=== PATIENT | male | born 1970 | race Caucasian/White ===

== ENCOUNTER 2019-08-07 00:30 | Day surgery (SDC) | payer OTHER, SELFPAY ==
[2019-07-31 13:13] VITALS: BMI 34.9
--- NOTE | 2019-08-06 14:01 | HP_ITS ---
DATE OF SERVICE: 08/07/2019 HISTORY: A 48-year-old with lesion on the tip of his nose and front of the ear. PHYSICAL EXAMINATION: CHEST: Clear. HEART: Without murmurs. ABDOMEN: Soft. EXTREMITIES: Negative. He had 2 heart attacks in the past. He is on blood thinners. He has a stent in his leg. A basal cell on tip of the nose, pigmented lesion in front of his ear. REVIEW OF SYSTEMS: he is on blood thinners, he has a stent and he has had an MD. D I MT: [facility]
[2019-08-07] VITALS (10 sets, daily range): BP systolic 121–159; BP diastolic 76–99; PULSE 62–85; RESP 14–20; TEMP 36.3–36.6; O2SAT 92–97
--- NOTE | 2019-08-07 06:11 | WPDHPUPDATE1 ---
History and Physical Update Update Date/Time: 08/07/19 06:11 History and Physical has been reviewed, including an updated exam of the patient. There are NO changes in the patient's condition. Risks, benefits, and alternatives have been discussed and questions answered. Patient agrees to proceed with procedure.
--- NOTE | 2019-08-07 07:33 | WPDHPUPDATE1 ---
History and Physical Update Update Date/Time: 08/07/19 07:33 excision lesion nose and right cheek History and Physical has been reviewed, including an updated exam of the patient. There are NO changes in the patient's condition. Risks, benefits, and alternatives have been discussed and questions answered. Patient agrees to proceed with procedure.
[2019-08-07] MEDS: LACTATED RINGERS 1,000 ML 30 ML IV CONT (08:45)
--- NOTE | 2019-08-07 10:11 | WPDANESEPPF ---
Anes - Initial Pre Proc Eval Procedure: Operation Date: 08/07/19 10:00 Proposed Procedures p Excision Lesion Tip Of Nose, Excision Lesion Right Cheek - Aditya Agustin MD Date/Time: 08/07/19 10:11 Surgeon: Aditya Agustin MD Pre Op Diagnosis: Lesions Tip Of Nose & Right Cheek Patient Data Age: 48 Gender: M Height: 5 ft 8 in Weight: 105.6 kg Last Vital Signs Temp 36.6 C 08/07/19 08:45 Pulse 85 08/07/19 08:45 Resp 18 08/07/19 08:45 BP 159/96 H 08/07/19 08:45 Pulse Ox 97 08/07/19 08:45 Allergies Allergy/AdvReac Type Severity Reaction Status Date / Time Penicillins Allergy SKIN Verified 08/07/19 09:09 PEELING Home Medications Medication Instructions Recorded Confirmed Type carvedilol 1.5 mg PO BID 07/31/19 08/07/19 History icosapent ethyl [Vascepa] 1 g PO BID 07/31/19 07/31/19 History lisinopril 5 mg PO DAILY 07/31/19 07/31/19 History magnesium 1 tablet PO DAILY 07/31/19 07/31/19 History potassium citrate 1 tablet PO DAILY 07/31/19 07/31/19 History ticagrelor [Brilinta] 90 mg PO BID 07/31/19 08/07/19 History Patient hx anesthesia problems: none Family hx anesthesia problems: none PMFSH Past Medical History Medical History (Updated 08/07/19 @ 10:12 by Parker aGy MD) CAD (coronary artery disease) DVT (deep venous thrombosis) History of myocardial infarction Hyperlipidemia Hypertension Surgical History Surgical History Stented coronary artery Social History Social History (Updated 08/07/19 @ 10:13 by Parker Gay MD) Smoking status: Current every day smoker Alcohol intake: current Alcohol use details: regular use Anes - Eval Final PreProcedure Day of Procedure 08/07/19 10:11 Patient weight: obese Heart: regular rate and rhythm Lungs: decreased breath sounds Airway: Mallampati scale class II Neurological: alert and oriented Last oral intake: >/= 8 hours ASA classification: III Emergent: no Anesthetic plan: proceed Anesthesia type and monitoring: general LMA and standard monitoring Informed Consent: The patient's anesthetic plan and its attendant risks and benefits were discussed with the patient/family/POA. Questions were solicited and answers provided to the satisfaction of the patient/family/POA.
[2019-08-07] MEDS: LIDO 1%/EPINEPHRINE 1:100,000 20 ML VIAL INFILTRATE (10:56)
--- NOTE | 2019-08-07 11:14 | PM.PROC ---
Procedure Note - Detailed Date of procedure: 08/07/19 Pre-op diagnosis: Lesions Tip Of Nose & Right Cheek Procedure performed: Patient was prepped in general anesthesia. The area of the right front of the year and tip of the nose was injected with xylocaine with adrenaline. Lesion tip of the nose was circular Indira excised the base cauterized the area in the right cheek was shaved off and the base cauterized. An area in the right supraclavicular area was excised full-thickness graft taken hemostasis with electrocautery and closed with 4 0 chromic who fat was trimmed placed on the defect in the nose and the 4 0 nylon used to sutured in place over a bolster of Xeroform gauze. Anesthesia: GLMA Surgeon: Aditya Agustin MD Estimated blood loss (mL): 5 Drains: No Packing: Yes Pathology: yes Complications: No immediate complications Condition: stable Disposition: PACU
== END 2019-08-07 13:55 | disposition home or self-care (01) ==
PROVIDERS: PCP Family Medicine; Visit Provider Otolaryngology
PROC: (CPT 11643; principal; 2019-08-07 10:00)
DX: C44.311 Basal cell carcinoma of skin of nose (principal); L82.1 Other seborrheic keratosis; I10 Essential (primary) hypertension; I25.10 Atherosclerotic heart disease of native coronary artery without angina pectoris; I25.2 Old myocardial infarction; E78.5 Hyperlipidemia, unspecified; Z86.718 Personal history of other venous thrombosis and embolism; Z79.01 Long term (current) use of anticoagulants; Z95.820 Peripheral vascular angioplasty status with implants and grafts; E66.9 Obesity, unspecified; Z68.35 Body mass index [BMI] 35.0-35.9, adult
CPT/HCPCS: 11643; 15260; 11440; 88305; A9270; J1100; J2250; J2704; J3010; J7120